=== PATIENT | female | born 1980 | race Caucasian/White ===

== ENCOUNTER 2020-08-27 17:28 | Emergency (ER) | payer MEDICAID ==
[~2020-08-27] VITALS: Ht 162.6 cm; Wt 6.8 kg
--- NOTE | 2020-08-27 17:30 | NUR ---
Dr Rosenthal at the bedside for MSE.
[2020-08-27] MEDS ORDERED: LIDOCAINE HCL 1% 20 ML VIAL IJ ONE (17:45)
[2020-08-27] MEDS ORDERED: TDAP DIPH,PERTUSS,TET VAC/PF 0.5 ML DISP.SYRIN IM ONE ×2 (17:45→17:53)
[2020-08-27] MEDS ORDERED: KETOROLAC TROMETHAMINE 15 MG INJ ONE (17:53)
[2020-08-27] MEDS ORDERED: ACETAMINOPHEN 325 MG TABLET PO ONE (18:00)
[2020-08-27] MEDS ORDERED: KETOROLAC TROMETHAMINE 15 MG INJ IM ONE (18:00)
[2020-08-27] MEDS ORDERED: ACETAMINOPHEN 325 MG TABLET ONE (18:05)
[2020-08-27] MEDS ORDERED: NEOMY/BACITRA/POLYMYXIN B OINT UD PACKET TP ONE ×2 (18:24→18:30)
[2020-08-27 18:28] VITALS: BP 119/70
--- NOTE | 2020-08-27 18:28 | NUR ---
Patient discharged to home in stable condition. Written and verbal after care instructions given. Patient verbalizes understanding of instructions. Stressed follow up or return to ER for worsening s/s.
== END 2020-08-27 18:30 | disposition home or self-care (01) ==
LOC: ER 17:28
DX: S01.01XA Laceration without foreign body of scalp, initial encounter (principal); S80.211A Abrasion, right knee, initial encounter; S63.502A Unspecified sprain of left wrist, initial encounter; V28.4XXA Motorcycle driver injured in noncollision transport accident in traffic accident, initial encounter; Y93.89 Activity, other specified; F31.9 Bipolar disorder, unspecified; F41.9 Anxiety disorder, unspecified
CPT/HCPCS: 12001; 29125; 73110; 90471; 90715; 96372; 99284; J1885; A4217; A4663

== ENCOUNTER 2021-09-26 17:56 | Emergency (ER) | payer MEDICAID ==
[~2021-09-26] VITALS: Ht 162.6 cm; Wt 63.5 kg
[2021-09-26] MEDS ORDERED: LAMO100T17 PO (18:16)
[2021-09-26] MEDS ORDERED: SUMA50TA PO (18:17)
[2021-09-26] MEDS ORDERED: BUPR150T10 PO (18:17)
--- NOTE | 2021-09-26 18:17 | NUR ---
PT IS IN ROOM #2A. DR RIVERA EVALUATED THE PT.
[2021-09-26] MEDS ORDERED: IBUPROFEN 600 MG TABLET PO ONE (18:30)
[2021-09-26] MEDS ORDERED: LIDOCAINE HCL 2% 20 ML VIAL ONE (18:52)
[2021-09-26] MEDS ORDERED: IBUPROFEN 600 MG TABLET ONE (18:58)
[2021-09-26] MEDS ORDERED: LIDOCAINE HCL 2% 20 ML VIAL IJ ONE (19:00)
[2021-09-26 19:48] VITALS: BP 133/81
== END 2021-09-26 19:48 | disposition home or self-care (01) ==
LOC: ER 18:08
DX: L03.031 Cellulitis of right toe (principal); L60.0 Ingrowing nail; F31.9 Bipolar disorder, unspecified; G43.909 Migraine, unspecified, not intractable, without status migrainosus; Z79.899 Other long term (current) drug therapy
CPT/HCPCS: 10060; 87070; 99283; J3490; A4663

== ENCOUNTER 2021-11-27 13:13 | Emergency (ER) | payer MEDICAID, OTHER ==
[~2021-11-27] VITALS: Ht 162.6 cm; Wt 63.5 kg
[~2021-11-27 13:13] MED LIST: BUPR150T10 PO; LAMO100T17 PO; SUMA50TA PO
[2021-11-27 14:02] LABS: *URINE HCG, QUAL NEG (NEGATIVE)
[2021-11-27] MEDS ORDERED: CYCL10TA9 PO (14:08)
[2021-11-27] MEDS ORDERED: NAPR-1164 PO (14:08)
--- NOTE | 2021-11-27 14:14 | NUR ---
Patient discharged to home in stable condition. Written and verbal after care instructions given. Patient verbalizes understanding of instructions. Stressed follow up or return to ER for worsening s/s.PT WALKS IN STEADY GAIT.
[2021-11-27] MEDS ORDERED: KETOROLAC TROMETHAMINE 30 MG INJ IM ONE (14:15)
[2021-11-27] MEDS ORDERED: KETOROLAC TROMETHAMINE 30 MG INJ ONE (14:17)
== END 2021-11-27 14:15 | disposition home or self-care (01) ==
LOC: ER 13:13
DX: S39.012A Strain of muscle, fascia and tendon of lower back, initial encounter (principal); X50.0XXA Overexertion from strenuous movement or load, initial encounter; Y92.511 Restaurant or cafe as the place of occurrence of the external cause; Y99.0 Civilian activity done for income or pay; F31.9 Bipolar disorder, unspecified; G43.909 Migraine, unspecified, not intractable, without status migrainosus; Z79.899 Other long term (current) drug therapy
CPT/HCPCS: 84703; 96372; 99283; J1885; A4663

== ENCOUNTER 2022-08-10 14:45 | Emergency (ER) | payer MEDICAID, OTHER ==
[~2022-08-10] VITALS: Ht 160 cm; Wt 63.5 kg
[~2022-08-10 14:45] MED LIST changes: +CYCL10TA9 PO; +NAPR-1164 PO
[2022-08-10] MEDS ORDERED: KETOROLAC TROMETHAMINE 15 MG INJ IM ONE (14:46)
[2022-08-10] MEDS ORDERED: diphenhydrAMINE 50 MG/1 ML VIAL IV ONE (15:15)
[2022-08-10] MEDS ORDERED: IV NORMAL SALINE 1000 ML BAG IV ONE (15:15)
[2022-08-10] MEDS ORDERED: DEXAMETHASONE SOD PHOSPHATE 4 MG INJ IV ONE (15:15)
[2022-08-10] MEDS ORDERED: PROCHLORPERAZINE EDISYLATE 10 MG/2 ML VIAL IV ONE (15:15)
--- NOTE | 2022-08-10 15:15 | NUR ---
Pt. walked into the ER for c/o of 8/10 lower back pain and numbness and tingling of right lower leg. Per pt. she had a previous back injury in November at work. Pt. reporting migrane and imsomnia for the last 3 days. Pt. has past med hx of migranes. evaluated patient at bedside.
[2022-08-10] MEDS ORDERED: diphenhydrAMINE 50 MG/1 ML VIAL ONE (15:22)
[2022-08-10] MEDS ORDERED: DEXAMETHASONE SOD PHOSPHATE 10 MG INJ ONE ×2 (15:22→15:23)
[2022-08-10] MEDS ORDERED: PROCHLORPERAZINE EDISYLATE 10 MG/2 ML VIAL ONE (15:22)
[2022-08-10 15:31] LABS: HEMATOCRIT 40.2 % (31.2-41.9); MEAN CORPUSCULAR HEMOGLOBIN 31.3 uug (24.7-32.8); MEAN CORPUSCULAR VOLUME 91.4 fL (75.5-95.3); PLATELET COUNT (AUTO) 486 K/uL (179-408)
[2022-08-10 15:33] LABS: *URINE HCG, QUAL NEG (NEGATIVE)
[2022-08-10 15:39] LABS: POTASSIUM 3.8 mmol/L (3.5-5.1)
[2022-08-10] MEDS ORDERED: KETOROLAC TROMETHAMINE 15 MG INJ IVP ONE (16:30)
[2022-08-10] MEDS ORDERED: METH-807 PO (16:43)
[2022-08-10] MEDS ORDERED: PRED20TA PO (16:43)
[2022-08-10 17:33] VITALS: BP 134/83
== END 2022-08-10 16:55 | disposition home or self-care (01) ==
LOC: ER 14:45
DX: R51.9 Headache, unspecified (principal); M54.41 Lumbago with sciatica, right side; F31.9 Bipolar disorder, unspecified; Z79.899 Other long term (current) drug therapy
CPT/HCPCS: 36415; 70450; 84703; 85025; J0780; J1100; J1200; J1885; J7040

== ENCOUNTER 2023-10-14 00:27 | Emergency (ER) | payer MEDICAID, OTHER ==
[~2023-10-14] VITALS: Ht 162.6 cm; Wt 60.8 kg
[~2023-10-14 00:27] MED LIST changes: -CYCL10TA9 PO; +METH-807 PO; +PRED20TA PO
[2023-10-14] MEDS ORDERED: PROPARACAINE 0.5% OPHT DROP 15 ML BOTTLE OP ONE (01:15)
[2023-10-14] MEDS ORDERED: FLUORESCEIN SODIUM 1 MG STRIP OP ONE (01:15)
[2023-10-14] MEDS ORDERED: FLUORESCEIN SODIUM 1 MG STRIP ONE (01:24)
[2023-10-14] MEDS ORDERED: PROPARACAINE 0.5% OPHT DROP 15 ML BOTTLE ONE (01:24)
[2023-10-14] MEDS ORDERED: LEVO5DRO21 LEFTEYE ×2 (01:38→03:29)
[2023-10-14 01:49] VITALS: BP 104/64; O2SAT 97
[2023-10-14] MEDS ORDERED: CIPR2.5D14 LEFTEYE (12:14)
== END 2023-10-14 01:49 | disposition home or self-care (01) ==
LOC: ER 00:31
DX: H10.89 Other conjunctivitis (principal); G43.909 Migraine, unspecified, not intractable, without status migrainosus; F41.9 Anxiety disorder, unspecified; F31.9 Bipolar disorder, unspecified; F17.200 Nicotine dependence, unspecified, uncomplicated; Z79.899 Other long term (current) drug therapy
CPT/HCPCS: A4606; A4663

== ENCOUNTER 2025-01-20 11:48 | Emergency (ER) | payer MEDICAID ==
[~2025-01-20] VITALS: Ht 162.6 cm; Wt 61.2 kg
[~2025-01-20 11:48] MED LIST changes: +CIPR2.5D14 LEFTEYE; +LEVO5DRO21 LEFTEYE
[2025-01-20 11:51] VITALS: O2SAT 98
[2025-01-20] MEDS ORDERED: GUAI5SYR4 PO (12:36)
[2025-01-20] MEDS ORDERED: OFLO5DRO5 EACH EAR (12:36)
== END 2025-01-20 12:42 | disposition home or self-care (01) ==
LOC: ER 11:48
DX: J20.8 Acute bronchitis due to other specified organisms (principal); B97.89 Other viral agents as the cause of diseases classified elsewhere; H60.93 Unspecified otitis externa, bilateral; F17.290 Nicotine dependence, other tobacco product, uncomplicated; G43.909 Migraine, unspecified, not intractable, without status migrainosus; F41.9 Anxiety disorder, unspecified; Z79.52 Long term (current) use of systemic steroids; Z79.899 Other long term (current) drug therapy; Z87.39 Personal history of other diseases of the musculoskeletal system and connective tissue
CPT/HCPCS: A4606; A4663